=== PATIENT | male | born 2005 | race African-American/Black ===

== ENCOUNTER 2024-02-09 16:03 | Emergency (ER) | payer OTHER, SELFPAY ==
[2024-02-09] MEDS ORDERED: Ibuprofen 800 MG TAB ONE (16:08)
== END 2024-02-09 18:07 | disposition home or self-care (01) ==
LOC: ERS 16:03
DX: K08.89 Other specified disorders of teeth and supporting structures (principal); R22.0 Localized swelling, mass and lump, head; K02.9 Dental caries, unspecified
CPT/HCPCS: 99282